=== PATIENT | male | born 1960 | race Two or more races ===

== ENCOUNTER 2016-10-25 16:02 | Inpatient (IN) | payer OTHER ==
[~2016-10-25] VITALS: Ht 162.6 cm; Wt 87.8 kg
[~2016-10-25 16:02] MED LIST: HTN med; LISI1TAB7 PO
[2016-10-25] MEDS ORDERED: PANTOPRAZOLE 80 MG in SODIUM CHLORIDE 0.9% 50 ML IVPB ONE (16:29)
[2016-10-25] MEDS ORDERED: SODIUM CHLORIDE 0.9% 1,000ML IVBOLUS ONE ×2 (16:30→20:00)
[2016-10-25] MEDS ORDERED: SODIUM CHLORIDE FLUSH 10ML SYR IVF ONE (16:30)
[2016-10-25] MEDS ORDERED: PIPERACILLIN/TAZO/PMX 3.375GM 50 ML IVPB ONE (16:30)
[2016-10-25] MEDS ORDERED: ACETAMINOPHEN 500 MG TABLET PO ONE (16:30)
[2016-10-25] MEDS ORDERED: PIPERACILLIN/TAZO/PMX 3.375GM 50 ML ONE (16:48)
[2016-10-25] MEDS ORDERED: ACETAMINOPHEN 500 MG TABLET ONE (16:48)
[2016-10-25 17:36] LABS: ASPARTATE AMINO TRANSFERASE 90 U/L (15-37)
[2016-10-25 17:38] LABS: BLOOD UREA NITROGEN 120 mg/dL (7-18)
[2016-10-25] MEDS: PANTOPRAZOLE 80 MG in SODIUM CHLORIDE 0.9% 100 ML IV SCH (17:43)
[2016-10-25 17:55] LABS: DIFF TOTAL CELLS COUNTED 100 CELL DIFF
[2016-10-25 17:57] LABS: ANISOCYTOSIS 1+
[2016-10-25 17:59] LABS: POLYCHROMASIA 1+
[2016-10-25 18:00] LABS: LARGE PLATELETS 1+
[2016-10-25 18:05] LABS: TOTAL IRON BINDING CAPACITY 140 mcg/dL (250-450)
[2016-10-25 18:10] LABS: VERIFY COUNTS? YES
[2016-10-25] MEDS ORDERED: SODIUM CHLORIDE 0.9% 1,000 ML IV SCH (18:27)
[2016-10-25] MEDS ORDERED: DOCUSATE 100 MG CAPSULE PO PRN (18:30)
[2016-10-25] MEDS ORDERED: PIPERACILLIN/TAZO/PMX 3.375GM 50 ML IV SCH (18:30)
[2016-10-25] MEDS ORDERED: POLYETHYLENE GLYCOL 17 GM PACKET PO PRN (18:30)
[2016-10-25] MEDS ORDERED: morphine SULFATE 10 MG/ML, 1ML IVPush PRN (18:30)
[2016-10-25] MEDS ORDERED: HEPARIN 5,000 UNITS/ML, 1ML SQ SCH (18:30)
[2016-10-25] MEDS ORDERED: ONDANSETRON 2MG/ML, 2ML IVPush PRN (18:30)
[2016-10-25] MEDS ORDERED: LACTATED RINGERS 1,000 ML IV SCH (18:30)
[2016-10-25] MEDS ORDERED: SODIUM CHLORIDE 0.9%, 500ML IVBOLUS ONE (18:30)
[2016-10-25] MEDS ORDERED: LACTATED RINGERS 1,000 ML IV ONE (18:31)
[2016-10-25 18:54] LABS: HEPATITIS C VIRUS ANTIBODY Nonreactive (Nonreactive)
[2016-10-25 21:15] LABS: POTASSIUM,URINE RANDOM 34 mmol/L
[2016-10-25] MEDS: THIAMINE 100 MG in SODIUM CHLORIDE 0.9% 50 ML IV SCH (21:35)
[2016-10-25] MEDS: NOREPINEPHRINE 4 MG in SODIUM CHLORIDE 0.9% 246 ML IV PRN (21:37)
[2016-10-25] MEDS: PIPERACILLIN/TAZO(ZOSYN) 2.25 GM in NS 50 ML IVPB SCH (22:38)
[2016-10-26] MEDS: PANTOPRAZOLE 80 MG in SODIUM CHLORIDE 0.9% 100 ML IV SCH ×2 (00:52→12:38)
[2016-10-26] MEDS: NOREPINEPHRINE 4 MG in SODIUM CHLORIDE 0.9% 246 ML IV PRN ×2 (02:31→05:32)
[2016-10-26] MEDS: PHENYLEPHRINE 20 MG in SODIUM CHLORIDE 0.9% 248 ML IV PRN ×2 (02:43→08:27)
[2016-10-26 04:00] VITALS: BP 114/58
[2016-10-26 04:53] LABS: ASPARTATE AMINO TRANSFERASE 69 U/L (15-37)
[2016-10-26 05:00] LABS: BLOOD UREA NITROGEN 106 mg/dL (7-18)
[2016-10-26] MEDS: PIPERACILLIN/TAZO(ZOSYN) 2.25 GM in NS 50 ML IVPB SCH ×4 (05:01→22:12)
[2016-10-26] MEDS: SODIUM CHLORIDE 0.9% 1,000 ML IV SCH ×3 (05:02→20:59)
[2016-10-26 05:41] LABS: DIFF TOTAL CELLS COUNTED 100 CELL DIFF
[2016-10-26 05:44] LABS: ANISOCYTOSIS 1+; VERIFY COUNTS? YES
[2016-10-26 05:46] LABS: LARGE PLATELETS 1+
[2016-10-26] MEDS ORDERED: NOREPINEPHRINE 8 MG in SODIUM CHLORIDE 0.9% 242 ML IV PRN (06:29)
[2016-10-26] MEDS ORDERED: VASOPRESSIN 100 UNIT in SODIUM CHLORIDE 0.9% 495 ML IV PRN (08:30)
[2016-10-26] MEDS ORDERED: LORazepam 2 MG/ML, 1ML IVPush PRN (10:00)
[2016-10-26] MEDS ORDERED: PHYTONADIONE 10 MG/ML, 1ML SQ ONE (10:00)
[2016-10-26] MEDS: NOREPINEPHRINE 16 MG in SODIUM CHLORIDE 0.9% 234 ML IV PRN ×2 (11:14→20:23)
[2016-10-26] MEDS: ZINC SULFATE 220 MG CAPSULE PO SCH (11:14)
[2016-10-26] MEDS: LACTULOSE 20 GM/30 ML UDC PO SCH ×2 (11:15→21:00)
[2016-10-26] MEDS: CHLORDIAZEPOXIDE 10 MG CAPSULE PO SCH ×3 (11:16→21:00)
[2016-10-26] MEDS: THIAMINE 100 MG in SODIUM CHLORIDE 0.9% 50 ML IV SCH (21:00)
[2016-10-27] MEDS: SODIUM CHLORIDE 0.9% 1,000 ML IV SCH ×2 (03:57→12:59)
[2016-10-27] MEDS: PIPERACILLIN/TAZO(ZOSYN) 2.25 GM in NS 50 ML IVPB SCH ×4 (03:57→22:38)
[2016-10-27 04:00] VITALS: BP 110/59
[2016-10-27 04:16] LABS: ASPARTATE AMINO TRANSFERASE 51 U/L (15-37)
[2016-10-27 04:18] LABS: BLOOD UREA NITROGEN 102 mg/dL (7-18)
[2016-10-27] MEDS: CHLORDIAZEPOXIDE 10 MG CAPSULE PO SCH ×3 (08:31→20:51)
[2016-10-27] MEDS: ZINC SULFATE 220 MG CAPSULE PO SCH (08:31)
[2016-10-27] MEDS: LACTULOSE 20 GM/30 ML UDC PO SCH ×2 (08:31→20:51)
[2016-10-27] MEDS ORDERED: PANTOPRAZOLE 80 MG in SODIUM CHLORIDE 0.9% 100 ML IV SCH (10:00)
[2016-10-27] MEDS: THIAMINE 100 MG in SODIUM CHLORIDE 0.9% 50 ML IV SCH (20:51)
[2016-10-27] MEDS: PANTOPRAZOLE 40 MG IV IVPush SCH (20:51)
[2016-10-28] MEDS: SODIUM CHLORIDE 0.9% 1,000 ML IV SCH ×2 (03:34→22:17)
[2016-10-28] MEDS: NOREPINEPHRINE 16 MG in SODIUM CHLORIDE 0.9% 234 ML IV PRN (03:34)
[2016-10-28 04:00] VITALS: BP 106/57
[2016-10-28] MEDS: PIPERACILLIN/TAZO(ZOSYN) 2.25 GM in NS 50 ML IVPB SCH ×4 (04:02→22:17)
[2016-10-28 04:37] LABS: ASPARTATE AMINO TRANSFERASE 67 U/L (15-37); BLOOD UREA NITROGEN 91 mg/dL (7-18)
[2016-10-28] MEDS: ZINC SULFATE 220 MG CAPSULE PO SCH (10:25)
[2016-10-28] MEDS: PANTOPRAZOLE 40 MG IV IVPush SCH ×2 (10:25→21:10)
[2016-10-28] MEDS: CHLORDIAZEPOXIDE 10 MG CAPSULE PO SCH ×3 (10:25→21:10)
[2016-10-28] MEDS: LACTULOSE 20 GM/30 ML UDC PO SCH ×2 (10:25→21:10)
[2016-10-28] MEDS: SODIUM BICARBONATE 650 MG TABLET PO SCH ×2 (14:07→21:10)
[2016-10-28] MEDS: THIAMINE 100 MG in SODIUM CHLORIDE 0.9% 50 ML IV SCH (21:10)
[2016-10-29 01:22] VITALS: BP 109/66
[2016-10-29] MEDS: PIPERACILLIN/TAZO(ZOSYN) 2.25 GM in NS 50 ML IVPB SCH ×4 (04:25→22:16)
[2016-10-29 05:53] LABS: BLOOD UREA NITROGEN 72 mg/dL (7-18)
[2016-10-29 06:00] LABS: ASPARTATE AMINO TRANSFERASE 92 U/L (15-37)
[2016-10-29 07:45] VITALS: BP 103/67
[2016-10-29] MEDS: PANTOPRAZOLE 40 MG IV IVPush SCH (10:10)
[2016-10-29] MEDS: LACTULOSE 20 GM/30 ML UDC PO SCH ×2 (10:10→20:44)
[2016-10-29] MEDS: ZINC SULFATE 220 MG CAPSULE PO SCH (10:10)
[2016-10-29] MEDS: CHLORDIAZEPOXIDE 10 MG CAPSULE PO SCH ×3 (10:10→20:44)
[2016-10-29] MEDS: SODIUM BICARBONATE 650 MG TABLET PO SCH ×2 (10:10→20:44)
[2016-10-29 12:55] VITALS: BP 100/65
[2016-10-29] MEDS: OXYcodone IR 5MG TABLET PO PRN (19:18)
[2016-10-29 20:31] VITALS: BP 103/66
[2016-10-29] MEDS: THIAMINE 100 MG in SODIUM CHLORIDE 0.9% 50 ML IV SCH (20:44)
[2016-10-29] MEDS: RIFAXIMIN 550 MG TABLET PO SCH (20:44)
[2016-10-30 01:18] VITALS: BP 97/58
[2016-10-30] MEDS: PIPERACILLIN/TAZO(ZOSYN) 2.25 GM in NS 50 ML IVPB SCH ×3 (04:06→16:18)
[2016-10-30 04:52] LABS: BLOOD UREA NITROGEN 72 mg/dL (7-18)
[2016-10-30 04:55] LABS: ASPARTATE AMINO TRANSFERASE 81 U/L (15-37)
[2016-10-30 08:06] VITALS: BP 101/68
[2016-10-30] MEDS: CHLORDIAZEPOXIDE 10 MG CAPSULE PO SCH ×3 (09:00→20:55)
[2016-10-30] MEDS: RIFAXIMIN 550 MG TABLET PO SCH ×2 (09:00→20:56)
[2016-10-30] MEDS: SODIUM BICARBONATE 650 MG TABLET PO SCH ×2 (09:00→20:55)
[2016-10-30] MEDS: LACTULOSE 20 GM/30 ML UDC PO SCH ×3 (09:00→20:56)
[2016-10-30] MEDS: ZINC SULFATE 220 MG CAPSULE PO SCH (09:00)
[2016-10-30] MEDS ORDERED: LIDOCAINE 1%, 20ML ONE (12:40)
[2016-10-30 13:43] VITALS: BP 102/66
[2016-10-30 13:54] LABS: CYTOLOGY BODY FLUID RECD INTO PATHOLOGY; CYTOLOGY BODY FLUID SOURCE ASCITES FLUID
[2016-10-30 19:29] VITALS: BP 112/74
[2016-10-30] MEDS: THIAMINE 100 MG in SODIUM CHLORIDE 0.9% 50 ML IV SCH (21:11)
[2016-10-30] MEDS: PIPERACILLIN/TAZO/PMX 2.25GM 50 ML IVPB SCH (22:37)
[2016-10-31 01:14] VITALS: BP 96/59
[2016-10-31] MEDS: PIPERACILLIN/TAZO/PMX 2.25GM 50 ML IVPB SCH ×4 (04:42→23:37)
[2016-10-31 05:02] LABS: BLOOD UREA NITROGEN 57 mg/dL (7-18)
[2016-10-31 05:05] LABS: ASPARTATE AMINO TRANSFERASE 71 U/L (15-37)
[2016-10-31 06:15] LABS: DIFF TOTAL CELLS COUNTED 100 CELL DIFF
[2016-10-31 06:18] LABS: VERIFY COUNTS? YES
[2016-10-31 06:19] LABS: ANISOCYTOSIS 1+; POLYCHROMASIA 1+
[2016-10-31 06:38] VITALS: BP 103/66
[2016-10-31] MEDS: LACTULOSE 20 GM/30 ML UDC PO SCH ×3 (08:59→22:41)
[2016-10-31] MEDS: ZINC SULFATE 220 MG CAPSULE PO SCH (08:59)
[2016-10-31] MEDS: SODIUM BICARBONATE 650 MG TABLET PO SCH ×2 (09:00→22:41)
[2016-10-31] MEDS: RIFAXIMIN 550 MG TABLET PO SCH ×2 (09:00→22:41)
[2016-10-31] MEDS: CHLORDIAZEPOXIDE 10 MG CAPSULE PO SCH ×2 (09:06→16:28)
[2016-10-31 12:46] VITALS: BP 97/61
[2016-10-31 16:31] VITALS: BP 104/66
[2016-10-31 20:03] VITALS: BP 106/66
[2016-10-31] MEDS: THIAMINE 100 MG in SODIUM CHLORIDE 0.9% 50 ML IV SCH (22:41)
[2016-11-01 01:57] VITALS: BP 105/68
[2016-11-01 05:07] LABS: ASPARTATE AMINO TRANSFERASE 87 U/L (15-37); BLOOD UREA NITROGEN 54 mg/dL (7-18)
[2016-11-01] MEDS: PIPERACILLIN/TAZO/PMX 2.25GM 50 ML IVPB SCH ×4 (05:20→22:39)
[2016-11-01 07:22] VITALS: BP 113/72
[2016-11-01] MEDS: LACTULOSE 20 GM/30 ML UDC PO SCH ×3 (09:35→20:16)
[2016-11-01] MEDS: SODIUM BICARBONATE 650 MG TABLET PO SCH ×2 (09:35→20:17)
[2016-11-01] MEDS: ZINC SULFATE 220 MG CAPSULE PO SCH (09:35)
[2016-11-01] MEDS: RIFAXIMIN 550 MG TABLET PO SCH ×2 (09:35→20:17)
[2016-11-01] MEDS ORDERED: PIPERACILLIN/TAZO/PMX 3.375GM 50 ML IV SCH (11:00)
[2016-11-01 13:11] VITALS: BP 103/66
[2016-11-01 18:54] VITALS: BP 119/78
[2016-11-01] MEDS: THIAMINE 100 MG in SODIUM CHLORIDE 0.9% 50 ML IV SCH (20:17)
[2016-11-02 03:37] VITALS: BP 122/77
[2016-11-02 04:35] LABS: ASPARTATE AMINO TRANSFERASE 104 U/L (15-37); BLOOD UREA NITROGEN 46 mg/dL (7-18)
[2016-11-02] MEDS: PIPERACILLIN/TAZO/PMX 2.25GM 50 ML IVPB SCH ×2 (04:44→10:09)
[2016-11-02 07:00] VITALS: BP 119/78
[2016-11-02] MEDS: SODIUM BICARBONATE 650 MG TABLET PO SCH ×2 (10:08→20:51)
[2016-11-02] MEDS: RIFAXIMIN 550 MG TABLET PO SCH ×2 (10:08→20:51)
[2016-11-02] MEDS: ZINC SULFATE 220 MG CAPSULE PO SCH (10:08)
[2016-11-02] MEDS: LACTULOSE 20 GM/30 ML UDC PO SCH ×3 (10:08→20:51)
[2016-11-02 12:45] VITALS: BP 112/70
[2016-11-02] MEDS: PIPERACILLIN/TAZO/PMX 3.375GM 50 ML IV SCH ×2 (15:43→22:37)
[2016-11-02 18:36] VITALS: BP 120/77
[2016-11-02] MEDS: OXYcodone IR 5MG TABLET PO PRN (18:51)
[2016-11-02] MEDS: THIAMINE 100 MG in SODIUM CHLORIDE 0.9% 50 ML IV SCH (20:51)
[2016-11-03 02:22] VITALS: BP 102/64
[2016-11-03] MEDS: PIPERACILLIN/TAZO/PMX 3.375GM 50 ML IV SCH ×4 (04:26→23:59)
[2016-11-03 05:22] LABS: ASPARTATE AMINO TRANSFERASE 86 U/L (15-37); BLOOD UREA NITROGEN 43 mg/dL (7-18)
[2016-11-03 06:58] VITALS: BP 109/68
[2016-11-03] MEDS: RIFAXIMIN 550 MG TABLET PO SCH ×2 (09:06→21:06)
[2016-11-03] MEDS: SODIUM BICARBONATE 650 MG TABLET PO SCH ×2 (09:06→21:05)
[2016-11-03] MEDS: ZINC SULFATE 220 MG CAPSULE PO SCH (09:06)
[2016-11-03] MEDS: LACTULOSE 20 GM/30 ML UDC PO SCH ×3 (09:06→21:05)
[2016-11-03] MEDS: PANTOPRAZOLE 20MG TABLET PO SCH ×2 (09:08→17:42)
[2016-11-03 12:59] VITALS: BP 112/73
[2016-11-03 14:02] VITALS: BP 107/61
[2016-11-03] MEDS: OXYcodone 5 MG/5 ML ORAL.SOL UDC PO PRN (19:13)
[2016-11-03 20:00] VITALS: BP 117/77
[2016-11-03] MEDS: THIAMINE 100 MG in SODIUM CHLORIDE 0.9% 50 ML IV SCH (21:05)
[2016-11-04 02:00] VITALS: BP 122/73
[2016-11-04] MEDS: PIPERACILLIN/TAZO/PMX 3.375GM 50 ML IV SCH ×3 (05:25→18:17)
[2016-11-04 07:45] VITALS: BP 126/76
[2016-11-04] MEDS: PANTOPRAZOLE 20MG TABLET PO SCH ×2 (07:50→18:17)
[2016-11-04] MEDS: LACTULOSE 20 GM/30 ML UDC PO SCH ×3 (10:24→22:07)
[2016-11-04] MEDS: RIFAXIMIN 550 MG TABLET PO SCH ×2 (10:25→22:07)
[2016-11-04] MEDS: ZINC SULFATE 220 MG CAPSULE PO SCH (10:25)
[2016-11-04] MEDS: SODIUM BICARBONATE 650 MG TABLET PO SCH ×2 (10:25→22:07)
[2016-11-04] MEDS: OXYcodone 5 MG/5 ML ORAL.SOL UDC PO PRN ×2 (11:38→19:45)
[2016-11-04 12:20] VITALS: BP 113/69
[2016-11-04 19:45] VITALS: BP 130/77
[2016-11-04] MEDS: THIAMINE 100 MG in SODIUM CHLORIDE 0.9% 50 ML IV SCH (22:07)
[2016-11-05] MEDS: PIPERACILLIN/TAZO/PMX 3.375GM 50 ML IV SCH ×3 (00:33→12:33)
[2016-11-05 01:50] VITALS: BP 119/71
[2016-11-05 05:43] LABS: ASPARTATE AMINO TRANSFERASE 78 U/L (15-37); BLOOD UREA NITROGEN 36 mg/dL (7-18)
[2016-11-05 07:36] VITALS: BP 125/73
[2016-11-05] MEDS: PANTOPRAZOLE 20MG TABLET PO SCH ×2 (08:49→16:38)
[2016-11-05] MEDS: RIFAXIMIN 550 MG TABLET PO SCH ×2 (08:49→21:15)
[2016-11-05] MEDS: LACTULOSE 20 GM/30 ML UDC PO SCH ×3 (08:49→21:15)
[2016-11-05] MEDS: SODIUM BICARBONATE 650 MG TABLET PO SCH ×2 (08:49→21:15)
[2016-11-05] MEDS: ZINC SULFATE 220 MG CAPSULE PO SCH (08:49)
[2016-11-05] MEDS: OXYcodone 5 MG/5 ML ORAL.SOL UDC PO PRN (11:39)
[2016-11-05 12:46] VITALS: BP 116/73
[2016-11-05] MEDS ORDERED: MAGNESIUM SULFATE PMX 2GM/50ML 50 ML IV ONE (18:00)
[2016-11-05 20:00] VITALS: BP 121/77
[2016-11-05] MEDS: THIAMINE 100 MG in SODIUM CHLORIDE 0.9% 50 ML IV SCH (21:15)
[2016-11-05] MEDS: LACTOBACILLUS CHEW TABLET PO SCH (21:15)
[2016-11-05] MEDS: AMOXICILLIN/CLAV 875-125MG TABLET PO SCH (21:15)
[2016-11-06 03:13] VITALS: BP 111/70
[2016-11-06 05:29] LABS: ASPARTATE AMINO TRANSFERASE 72 U/L (15-37); BLOOD UREA NITROGEN 33 mg/dL (7-18)
[2016-11-06 07:34] VITALS: BP 118/76
[2016-11-06] MEDS: LACTULOSE 20 GM/30 ML UDC PO SCH ×3 (07:56→19:55)
[2016-11-06] MEDS: ZINC SULFATE 220 MG CAPSULE PO SCH (07:56)
[2016-11-06] MEDS: LACTOBACILLUS CHEW TABLET PO SCH ×3 (07:56→19:55)
[2016-11-06] MEDS: PANTOPRAZOLE 20MG TABLET PO SCH (07:56)
[2016-11-06] MEDS: MAGNESIUM OXIDE 400 MG TABLET PO SCH (07:56)
[2016-11-06] MEDS: RIFAXIMIN 550 MG TABLET PO SCH ×2 (07:56→19:55)
[2016-11-06] MEDS: SODIUM BICARBONATE 650 MG TABLET PO SCH ×2 (07:56→19:55)
[2016-11-06] MEDS: AMOXICILLIN/CLAV 875-125MG TABLET PO SCH ×2 (07:56→19:55)
[2016-11-06] MEDS ORDERED: SODI650T PO (08:40)
[2016-11-06] MEDS ORDERED: ZINC220C5 PO (08:40)
[2016-11-06] MEDS ORDERED: LACT20SO13 PO (08:40)
[2016-11-06] MEDS ORDERED: THIA100T6 PO (08:40)
[2016-11-06] MEDS ORDERED: MAGN400T26 PO (08:40)
[2016-11-06] MEDS ORDERED: FURO20TA3 PO (08:40)
[2016-11-06] MEDS ORDERED: FOLI-17 PO (08:40)
[2016-11-06] MEDS ORDERED: SPIR25TA PO (08:40)
[2016-11-06] MEDS ORDERED: AMOX1TAB12 PO (08:40)
[2016-11-06] MEDS ORDERED: RIFA550T PO (08:40)
[2016-11-06] MEDS ORDERED: MULT1TAB60 PO (08:40)
[2016-11-06] MEDS ORDERED: ACID1TAB7 PO (08:40)
[2016-11-06] MEDS ORDERED: LIDOCAINE 1%, 20ML ONE (09:09)
[2016-11-06] MEDS: FUROSEMIDE 20 MG TABLET PO SCH (10:13)
[2016-11-06] MEDS: SPIRONOLACTONE 25 MG TABLET PO SCH (10:13)
[2016-11-06] MEDS: THIAMINE 100MG TABLET PO SCH (10:13)
[2016-11-06] MEDS: MULTIVITAMIN 1 TABLET PO SCH (10:13)
[2016-11-06] MEDS: FOLIC ACID 1 MG TABLET PO SCH (10:13)
[2016-11-06 13:35] VITALS: BP 113/71
[2016-11-06 19:17] VITALS: BP 115/70
[2016-11-07 01:33] VITALS: BP 112/68
[2016-11-07 06:52] VITALS: BP 113/68
[2016-11-07 09:40] LABS: BLOOD UREA NITROGEN 31 mg/dL (7-18)
[2016-11-07] MEDS: THIAMINE 100MG TABLET PO SCH (11:05)
[2016-11-07] MEDS: FOLIC ACID 1 MG TABLET PO SCH (11:06)
[2016-11-07] MEDS: AMOXICILLIN/CLAV 875-125MG TABLET PO SCH (11:06)
[2016-11-07] MEDS: LACTOBACILLUS CHEW TABLET PO SCH ×2 (11:06→16:42)
[2016-11-07] MEDS: FUROSEMIDE 20 MG TABLET PO SCH (11:06)
[2016-11-07] MEDS: MAGNESIUM OXIDE 400 MG TABLET PO SCH (11:06)
[2016-11-07] MEDS: MULTIVITAMIN 1 TABLET PO SCH (11:06)
[2016-11-07] MEDS: ZINC SULFATE 220 MG CAPSULE PO SCH (11:06)
[2016-11-07] MEDS: RIFAXIMIN 550 MG TABLET PO SCH (11:06)
[2016-11-07] MEDS: SPIRONOLACTONE 25 MG TABLET PO SCH (11:06)
[2016-11-07] MEDS: SODIUM BICARBONATE 650 MG TABLET PO SCH (11:06)
[2016-11-07] MEDS: LACTULOSE 20 GM/30 ML UDC PO SCH ×2 (11:07→16:42)
[2016-11-07 13:03] VITALS: BP 114/71
[2016-11-07] MEDS ORDERED: SPIR25TA PO (14:08)
[2016-11-07] MEDS ORDERED: SPIRONOLACTONE 25 MG TABLET PO SCH (21:00)
== END 2016-11-07 17:00 | DRG 871 ==
LOC: SUATTDRO 18:10 → ED 18:33 → EDIP 18:55 → CCU 19:17 → 3NW 10-28 18:04 → 3NE 11-03 14:00
PROVIDERS: ADMIT Family Medicine; ATTEND Family Medicine
PROC: 0W9G3ZZ Drainage of Peritoneal Cavity, Percutaneous Approach (ICD-10-PCS; principal; 2016-10-30)
PROC: 0W9G3ZZ Drainage of Peritoneal Cavity, Percutaneous Approach (ICD-10-PCS; 2016-11-06)
DX: A41.51 Sepsis due to Escherichia coli [E. coli] (principal); R65.21 Severe sepsis with septic shock; G93.41 Metabolic encephalopathy; E43 Unspecified severe protein-calorie malnutrition; N17.0 Acute kidney failure with tubular necrosis; E87.1 Hypo-osmolality and hyponatremia; K92.2 Gastrointestinal hemorrhage, unspecified; D68.9 Coagulation defect, unspecified; K76.6 Portal hypertension; N30.90 Cystitis, unspecified without hematuria; K72.10 Chronic hepatic failure without coma; M54.30 Sciatica, unspecified side; D53.9 Nutritional anemia, unspecified; D69.59 Other secondary thrombocytopenia; E83.39 Other disorders of phosphorus metabolism; E86.0 Dehydration; I10 Essential (primary) hypertension; K42.9 Umbilical hernia without obstruction or gangrene; K70.11 Alcoholic hepatitis with ascites; K70.31 Alcoholic cirrhosis of liver with ascites; E83.42 Hypomagnesemia; D63.8 Anemia in other chronic diseases classified elsewhere; F10.20 Alcohol dependence, uncomplicated; N18.9 Chronic kidney disease, unspecified; I12.9 Hypertensive chronic kidney disease with stage 1 through stage 4 chronic kidney disease, or unspecified chronic kidney disease; Z79.899 Other long term (current) drug therapy
CPT/HCPCS: 36415; 49083; 71010; 76700; 80048; 80053; 80074; 80307; 81001; 82010; 82042; 82105; 82140; 82436; 82570; 82607; 82728; 83540; 83550; 83605; 83735; 84100; 84133; 84145; 84157; 84300; 84443; 84630; 85025; 85610; 86850; 86900; 87040; 87070; 87077; 87081; 87086; 87186; 87205; 88112; 93005; 93306; 96365; 96367; J2405; J2543; J3411; J3430; J3490; C9113; J2270; J2370; J3475; J7030; J7040; J7050

== ENCOUNTER 2016-12-16 06:49 | Observation (INO) | payer OTHER, MEDICAID ==
[~2016-12-16] VITALS: Ht 162.6 cm; Wt 85.3 kg
[~2016-12-16 06:49] MED LIST changes: +ACID1TAB7 PO; +AMOX1TAB12 PO; +FOLI-17 PO; +FURO20TA3 PO; +LACT20SO13 PO; +MAGN400T26 PO; +MULT1TAB60 PO; +RIFA550T4 PO; +SODI650T PO; +SPIR25TA PO; +THIA100T6 PO; +ZINC220C5 PO
[2016-12-16] MEDS ORDERED: LACTATED RINGERS 1,000 ML IV SCH ×2 (07:21→07:30)
[2016-12-16] MEDS ORDERED: LIDOCAINE 1%, 2ML SQ PRN (07:30)
[2016-12-16] MEDS ORDERED: IBUP-1222 PO (07:37)
[2016-12-16 07:39] VITALS: BP 143/89
[2016-12-16] MEDS ORDERED: EPINEPHRINE 1 MG/ML, 1ML ONE (07:55)
[2016-12-16] MEDS ORDERED: BUPIVACAINE/PF 0.5% ONE (07:55)
[2016-12-16] MEDS ORDERED: MIDAZOLAM 1 MG/ML, 2ML ONE (08:02)
[2016-12-16] MEDS ORDERED: FENTANYL PF 100 MCG/2ML ONE ×2 (08:02→09:36)
[2016-12-16] MEDS ORDERED: FOLI-17 PO (08:03)
[2016-12-16] MEDS ORDERED: LACT10SO28 PO (08:03)
[2016-12-16] MEDS ORDERED: SODI650T PO (08:03)
[2016-12-16] MEDS ORDERED: THIA100T10 PO (08:03)
[2016-12-16] MEDS ORDERED: MAGN400T7 PO (08:03)
[2016-12-16] MEDS ORDERED: FURO20TA3 PO (08:03)
[2016-12-16] MEDS ORDERED: SPIR25TA3 PO (08:03)
[2016-12-16] MEDS ORDERED: AMOX875T PO (08:03)
[2016-12-16] MEDS ORDERED: RIFA550T4 PO (08:03)
[2016-12-16] MEDS ORDERED: MULT-6 PO (08:03)
[2016-12-16] MEDS ORDERED: ZINC220T PO (08:03)
[2016-12-16] MEDS ORDERED: CALC-79 PO (08:03)
[2016-12-16 08:27] LABS: BLOOD UREA NITROGEN 14 mg/dL (7-18)
[2016-12-16] MEDS ORDERED: LABETALOL 5MG/ML, 20ML IV PRN (08:30)
[2016-12-16] MEDS ORDERED: ALBUTEROL SULFATE 2.5 MG/3 ML NPPB PRN (08:30)
[2016-12-16] MEDS ORDERED: hydrALAzine 20 MG/ML, 1ML IV PRN (08:30)
[2016-12-16] MEDS ORDERED: PROMETHAZINE 25 MG/ML, 1ML IV PRN (08:30)
[2016-12-16] MEDS ORDERED: METOCLOPRAMIDE 5 MG/ML, 2ML IV PRN (08:30)
[2016-12-16] MEDS ORDERED: METOPROLOL 1 MG/ML, 5ML IV PRN (08:30)
[2016-12-16] MEDS ORDERED: MIDAZOLAM 1 MG/ML, 2ML IV PRN (08:30)
[2016-12-16] MEDS ORDERED: EPHEDRINE 50 MG/ML, 1ML IVPush PRN (08:30)
[2016-12-16] MEDS ORDERED: ONDANSETRON 2MG/ML, 2ML IVPush PRN ×2 (08:30→13:30)
[2016-12-16] MEDS ORDERED: OXYcodone 5 MG/5 ML ORAL.SOL UDC PO PRN (08:30)
[2016-12-16] MEDS ORDERED: NALOXONE 0.4 MG/ML, 1ML ONE (08:42)
[2016-12-16] MEDS ORDERED: ROCURONIUM 10 MG/ML ONE (08:42)
[2016-12-16] MEDS ORDERED: SUCCINYLCHOLINE 20 MG/ML, 10ML ONE (08:42)
[2016-12-16] MEDS ORDERED: ONDANSETRON 2MG/ML, 2ML ONE (08:42)
[2016-12-16] MEDS ORDERED: DEXAMETHASONE 4 MG/ML, 1ML ONE (08:42)
[2016-12-16] MEDS ORDERED: CEFAZOLIN 1,000 MG ONE (08:42)
[2016-12-16] MEDS ORDERED: PROPOFOL 10 MG/ML, 20ML ONE (08:42)
[2016-12-16 09:25] LABS: HEMOGLOBIN 11.4 g/dL (13.7-18.0); WHITE BLOOD COUNT 4.9 x10^3/uL (3.4-10)
[2016-12-16] MEDS ORDERED: OXYcodone 5 MG/5 ML ORAL.SOL UDC ONE (09:37)
[2016-12-16] MEDS ORDERED: ALBUTEROL SULFATE 2.5 MG/3 ML ONE (10:18)
[2016-12-16] MEDS: FENTANYL PF 100 MCG/2ML IV PRN ×2 (10:44→11:01)
[2016-12-16] MEDS ORDERED: HYDROmorphone 1 MG/ML, 1ML ONE (10:45)
[2016-12-16] MEDS: HYDROmorphone 1 MG/ML, 1ML IV PRN ×2 (10:47→11:01)
[2016-12-16 12:20] VITALS: BP 116/79
[2016-12-16] MEDS ORDERED: DIPHENHYDRAMINE 50 MG/ML, 1ML IVPush PRN (13:30)
[2016-12-16] MEDS ORDERED: MORPHINE SULFATE 4 MG/ML, 1ML IVPush PRN (13:30)
[2016-12-16] MEDS ORDERED: NS + 40MEQ KCL 1,000 ML IV SCH (13:30)
[2016-12-16] MEDS ORDERED: OXYcodone/APAP 5/325MG TABLET PO PRN (13:30)
[2016-12-16] MEDS: CALCIUM CARBONATE 500 MG TAB.CHEW PO SCH ×2 (15:41→20:41)
[2016-12-16] MEDS: LACTULOSE 20 GM/30 ML UDC PO SCH ×2 (15:41→21:16)
[2016-12-16 17:05] VITALS: BP 101/64
[2016-12-16 20:19] VITALS: BP 119/75
[2016-12-16] MEDS: SODIUM BICARBONATE 650 MG TABLET PO SCH (20:42)
[2016-12-16] MEDS: SPIRONOLACTONE 25 MG TABLET PO SCH (20:42)
[2016-12-16] MEDS: RIFAXIMIN 550 MG TABLET PO SCH (20:42)
[2016-12-16 23:51] VITALS: BP 122/80
[2016-12-17 06:55] VITALS: BP 118/73
[2016-12-17] MEDS: CALCIUM CARBONATE 500 MG TAB.CHEW PO SCH (07:30)
[2016-12-17] MEDS: SPIRONOLACTONE 25 MG TABLET PO SCH (07:30)
[2016-12-17] MEDS: SODIUM BICARBONATE 650 MG TABLET PO SCH (07:30)
[2016-12-17] MEDS: RIFAXIMIN 550 MG TABLET PO SCH (07:30)
[2016-12-17] MEDS: LACTULOSE 20 GM/30 ML UDC PO SCH (07:30)
[2016-12-17] MEDS ORDERED: ENOXAPARIN 40 MG/0.4 ML SQ SCH (09:00)
[2016-12-17] MEDS ORDERED: MULTIVITAMIN 1 TABLET PO SCH (09:00)
[2016-12-17] MEDS ORDERED: FOLIC ACID 1 MG TABLET PO SCH (09:00)
[2016-12-17] MEDS ORDERED: ZINC SULFATE 220 MG CAPSULE PO SCH (09:00)
[2016-12-17] MEDS ORDERED: MAGNESIUM OXIDE 400 MG TABLET PO SCH (09:00)
[2016-12-17] MEDS ORDERED: FUROSEMIDE 20 MG TABLET PO SCH (09:00)
[2016-12-17] MEDS ORDERED: THIAMINE 100MG TABLET PO SCH (09:00)
[2016-12-17] MEDS ORDERED: OXYC5CAP2 PO (09:04)
== END 2016-12-17 11:00 | disposition home or self-care (01) ==
LOC: OUT 06:49 → 4NOR 12:03 → OUT 12:09 → 4NOR 12:10 → DCLOUNGE 12-17 10:35
PROVIDERS: ADMIT Colon & Rectal Surgery; ATTEND Colon & Rectal Surgery
DX: K43.9 Ventral hernia without obstruction or gangrene (principal); K74.60 Unspecified cirrhosis of liver; K42.9 Umbilical hernia without obstruction or gangrene
CPT/HCPCS: 36415; 49560; 49568; 80048; 85025; 85610; 85730; 88302; 96372; C1781; G0378; J0171; J0330; J0690; J1100; J1170; J1650; J2250; J2310; J2405; J2704; J3010; J3480; J3490

== ENCOUNTER 2016-12-19 20:49 | Inpatient (IN) | payer OTHER, MEDICAID ==
[~2016-12-19] VITALS: Ht 162.6 cm; Wt 80.0 kg
[~2016-12-19 20:49] MED LIST changes: +AMOX875T PO; +CALC-79 PO; +IBUP-1222 PO; +LACT10SO28 PO; +MAGN400T7 PO; +MULT-6 PO; +OXYC5CAP2 PO; +SPIR25TA3 PO; +THIA100T10 PO; +ZINC220T PO
[2016-12-19] MEDS ORDERED: SODIUM CHLORIDE FLUSH 10ML SYR IVF ONE (21:30)
[2016-12-19] MEDS ORDERED: OMNIPAQUE 350 MG/ML, 100ML BOTTLE ONE (21:40)
[2016-12-19 21:49] LABS: ASPARTATE AMINO TRANSFERASE 61 U/L (15-37); BLOOD UREA NITROGEN 21 mg/dL (7-18)
[2016-12-19 21:50] LABS: HEMATOCRIT 30.5 % (39.2-51.8); HEMOGLOBIN 10.2 g/dL (13.7-18.0); WHITE BLOOD COUNT 7.4 x10^3/uL (3.4-10)
[2016-12-19 22:14] LABS: ANISOCYTOSIS 1+
[2016-12-19 22:15] LABS: OVALOCYTES 1+; POLYCHROMASIA 1+
[2016-12-19 22:16] LABS: LARGE PLATELETS 1+
[2016-12-20 01:00] VITALS: BP 148/82
[2016-12-20] MEDS ORDERED: D5%-0.45% NACL 1,000 ML IV ONE (01:02)
[2016-12-20] MEDS ORDERED: HYDROmorphone 1 MG/ML, 1ML IVPush PRN (01:30)
[2016-12-20] MEDS ORDERED: ONDANSETRON 2MG/ML, 2ML IVPush PRN ×2 (01:30→06:00)
[2016-12-20] MEDS ORDERED: SODIUM CHLORIDE FLUSH 10ML SYR IVF PRN (01:30)
[2016-12-20 02:08] VITALS: BP 148/82
[2016-12-20 02:59] VITALS: BP 148/82
[2016-12-20] MEDS ORDERED: POLYETHYLENE GLYCOL 17 GM PACKET PO PRN (06:00)
[2016-12-20] MEDS ORDERED: ACETAMINOPHEN 325 MG TABLET PO PRN (06:00)
[2016-12-20] MEDS: CALCIUM CARBONATE 500 MG TAB.CHEW PO SCH ×4 (06:00→20:41)
[2016-12-20] MEDS ORDERED: DOCUSATE 100 MG CAPSULE PO PRN (06:00)
[2016-12-20] MEDS: LACTULOSE 10 GM/15 ML UDC PO SCH ×4 (06:00→20:41)
[2016-12-20] MEDS ORDERED: morphine SULFATE 10 MG/ML, 1ML IVPush PRN (06:00)
[2016-12-20] MEDS ORDERED: OXYcodone IR 5MG TABLET PO PRN ×2 (06:00)
[2016-12-20 06:50] VITALS: BP 118/68
[2016-12-20] MEDS: SODIUM CHLORIDE FLUSH 10ML SYR IVF SCH ×2 (09:00→20:42)
[2016-12-20] MEDS: RIFAXIMIN 550 MG TABLET PO SCH ×2 (09:57→20:41)
[2016-12-20] MEDS: THIAMINE 100MG TABLET PO SCH (09:57)
[2016-12-20] MEDS: FUROSEMIDE 20 MG TABLET PO SCH (09:57)
[2016-12-20] MEDS: MULTIVITAMIN 1 TABLET PO SCH (09:57)
[2016-12-20] MEDS: SODIUM BICARBONATE 650 MG TABLET PO SCH ×2 (09:57→20:41)
[2016-12-20] MEDS: MAGNESIUM OXIDE 400 MG TABLET PO SCH (09:57)
[2016-12-20] MEDS: FOLIC ACID 1 MG TABLET PO SCH (09:57)
[2016-12-20] MEDS: ZINC SULFATE 220 MG CAPSULE PO SCH (09:57)
[2016-12-20] MEDS: SPIRONOLACTONE 25 MG TABLET PO SCH ×2 (09:57→20:41)
[2016-12-20 13:05] VITALS: BP 127/83
[2016-12-20 20:00] VITALS: BP 120/67
[2016-12-21 00:49] VITALS: BP 111/67
[2016-12-21 05:05] LABS: BLOOD UREA NITROGEN 19 mg/dL (7-18)
[2016-12-21 05:36] LABS: HEMATOCRIT 29.1 % (39.2-51.8); HEMOGLOBIN 9.7 g/dL (13.7-18.0); WHITE BLOOD COUNT 5.7 x10^3/uL (3.4-10)
[2016-12-21 07:25] VITALS: BP 100/64
[2016-12-21] MEDS: LACTULOSE 10 GM/15 ML UDC PO SCH (09:00)
[2016-12-21] MEDS: THIAMINE 100MG TABLET PO SCH (09:19)
[2016-12-21] MEDS: ZINC SULFATE 220 MG CAPSULE PO SCH (09:19)
[2016-12-21] MEDS: FOLIC ACID 1 MG TABLET PO SCH (09:19)
[2016-12-21] MEDS: FUROSEMIDE 20 MG TABLET PO SCH (09:19)
[2016-12-21] MEDS: MULTIVITAMIN 1 TABLET PO SCH (09:19)
[2016-12-21] MEDS: SPIRONOLACTONE 25 MG TABLET PO SCH (09:19)
[2016-12-21] MEDS: MAGNESIUM OXIDE 400 MG TABLET PO SCH (09:19)
[2016-12-21] MEDS: CALCIUM CARBONATE 500 MG TAB.CHEW PO SCH (09:19)
[2016-12-21] MEDS: SODIUM BICARBONATE 650 MG TABLET PO SCH (09:19)
[2016-12-21] MEDS: RIFAXIMIN 550 MG TABLET PO SCH (09:20)
[2016-12-21] MEDS: SODIUM CHLORIDE FLUSH 10ML SYR IVF SCH (09:20)
[2016-12-21] MEDS ORDERED: PNEUMOCOCCAL 23 VACCINE IM-VACC ONE (11:00)
[2016-12-21 11:17] VITALS: BP 122/76
== END 2016-12-21 12:40 | disposition home or self-care (01) | DRG 432 ==
LOC: ED 21:18 → EDIP 12-20 01:02 → 4NOR 12-20 01:50
PROVIDERS: ADMIT Family Medicine; ATTEND Internal Medicine
PROC: 0W9G3ZZ Drainage of Peritoneal Cavity, Percutaneous Approach (ICD-10-PCS; principal; 2016-12-19)
DX: K70.31 Alcoholic cirrhosis of liver with ascites (principal); E43 Unspecified severe protein-calorie malnutrition; N17.0 Acute kidney failure with tubular necrosis; G93.41 Metabolic encephalopathy; K76.6 Portal hypertension; D69.59 Other secondary thrombocytopenia; J98.11 Atelectasis; E86.0 Dehydration; F10.21 Alcohol dependence, in remission; I12.9 Hypertensive chronic kidney disease with stage 1 through stage 4 chronic kidney disease, or unspecified chronic kidney disease; K42.9 Umbilical hernia without obstruction or gangrene; K59.00 Constipation, unspecified; M54.30 Sciatica, unspecified side; N18.9 Chronic kidney disease, unspecified; Z68.30 Body mass index [BMI] 30.0-30.9, adult; Z23 Encounter for immunization
CPT/HCPCS: 36415; 49083; 70450; 74177; 80048; 80053; 82042; 82140; 83615; 83690; 85025; 87070; 87205; 89051; 90732; 99285; Q9967

== ENCOUNTER 2017-02-22 03:51 | Inpatient (IN) | payer OTHER, MEDICAID ==
[~2017-02-22] VITALS: Ht 162.6 cm; Wt 75.0 kg
[2017-02-22] VITALS (9 sets, daily range): BP systolic 93–114; BP diastolic 51–73
[2017-02-22] MEDS ORDERED: IBUPROFEN 200 MG TABLET ONE (04:09)
[2017-02-22] MEDS ORDERED: ACETAMINOPHEN 325 MG TABLET ONE (04:09)
[2017-02-22] MEDS ORDERED: CEFTRIAXONE PMX 1GM/50ML 50 ML ONE (04:13)
[2017-02-22] MEDS ORDERED: LIDOCAINE 1%, 20ML ONE (04:13)
[2017-02-22] MEDS ORDERED: IBUPROFEN 200 MG TABLET PO ONE (04:30)
[2017-02-22] MEDS ORDERED: ACETAMINOPHEN 325 MG TABLET PO ONE (04:30)
[2017-02-22] MEDS ORDERED: LIDOCAINE 1%, 20ML INFIL ONE (04:30)
[2017-02-22] MEDS ORDERED: SODIUM CHLORIDE 0.9% 1,000ML IVBOLUS ONE (04:30)
[2017-02-22] MEDS ORDERED: CEFTRIAXONE PMX 1GM/50ML 50 ML IVPB ONE (04:30)
[2017-02-22 04:34] LABS: HEMATOCRIT 32.3 % (39.2-51.8); HEMOGLOBIN 11.1 g/dL (13.7-18.0); WHITE BLOOD COUNT 2.5 x10^3/uL (3.4-10)
[2017-02-22 04:50] LABS: ASPARTATE AMINO TRANSFERASE 49 U/L (15-37); BLOOD UREA NITROGEN 10 mg/dL (7-18)
[2017-02-22] MEDS ORDERED: CEFTRIAXONE PMX 1GM/50ML 50 ML IV ONE (05:00)
[2017-02-22] MEDS ORDERED: SODIUM CHLORIDE 0.9% 1,000 ML IV SCH (05:05)
[2017-02-22 05:46] LABS: DIFF TOTAL CELLS COUNTED 100 CELL DIFF
[2017-02-22 05:49] LABS: ANISOCYTOSIS 1+; POLYCHROMASIA 1+; VERIFY COUNTS? YES
[2017-02-22] MEDS: ACETAMINOPHEN 325 MG TABLET PO PRN (10:21)
[2017-02-22] MEDS: morphine SULFATE 10 MG/ML, 1ML IVPush PRN (11:14)
[2017-02-22] MEDS: RIFAXIMIN 550 MG TABLET PO SCH ×2 (11:19→20:50)
[2017-02-22] MEDS: THIAMINE 100MG TABLET PO SCH (15:04)
[2017-02-22] MEDS: FOLIC ACID 1 MG TABLET PO SCH (15:04)
[2017-02-22] MEDS: LACTULOSE 20 GM/30 ML UDC PO SCH ×2 (16:59→20:50)
[2017-02-22] MEDS: ONDANSETRON 2MG/ML, 2ML IVPush PRN (17:34)
[2017-02-22] MEDS: PIPERACILLIN/TAZO/PMX 3.375GM 50 ML IV SCH ×2 (17:40→23:22)
[2017-02-23 00:38] VITALS: BP 95/56
[2017-02-23] MEDS ORDERED: CEFTRIAXONE PMX 2GM/50ML 50 ML IV SCH (04:00)
[2017-02-23 05:03] LABS: BLOOD UREA NITROGEN 19 mg/dL (7-18)
[2017-02-23 05:06] LABS: HEMATOCRIT 24.4 % (39.2-51.8); HEMOGLOBIN 8.3 g/dL (13.7-18.0); WHITE BLOOD COUNT 7.3 x10^3/uL (3.4-10)
[2017-02-23 05:07] LABS: ASPARTATE AMINO TRANSFERASE 37 U/L (15-37)
[2017-02-23] MEDS: PIPERACILLIN/TAZO/PMX 3.375GM 50 ML IV SCH ×3 (05:45→17:22)
[2017-02-23 07:41] VITALS: BP 97/60
[2017-02-23] MEDS ORDERED: MAGNESIUM SULFATE PMX 2GM/50ML 50 ML IV ONE (08:00)
[2017-02-23] MEDS: LACTULOSE 20 GM/30 ML UDC PO SCH ×3 (08:58→21:04)
[2017-02-23] MEDS: RIFAXIMIN 550 MG TABLET PO SCH ×2 (08:58→21:05)
[2017-02-23] MEDS: FOLIC ACID 1 MG TABLET PO SCH (08:58)
[2017-02-23] MEDS: THIAMINE 100MG TABLET PO SCH (08:58)
[2017-02-23 09:50] LABS: LACTATE DEHYDROGENASE 238 U/L (87-241)
[2017-02-23 10:02] LABS: HEMATOCRIT 30.5 % (39.2-51.8); HEMOGLOBIN 10.4 g/dL (13.7-18.0); WHITE BLOOD COUNT 11.1 x10^3/uL (3.4-10)
[2017-02-23 10:12] LABS: DIFF TOTAL CELLS COUNTED 100 CELL DIFF
[2017-02-23 10:15] LABS: ANISOCYTOSIS 1+; VERIFY COUNTS? YES
[2017-02-23 10:16] LABS: LARGE PLATELETS 1+; POLYCHROMASIA 1+
[2017-02-23 13:00] VITALS: BP 117/73
[2017-02-23 18:43] VITALS: BP 109/64
[2017-02-24] MEDS: PIPERACILLIN/TAZO/PMX 3.375GM 50 ML IV SCH ×3 (00:02→12:11)
[2017-02-24 02:06] VITALS: BP 102/60
[2017-02-24 05:42] LABS: BLOOD UREA NITROGEN 26 mg/dL (7-18)
[2017-02-24 05:46] LABS: HEMATOCRIT 23.8 % (39.2-51.8); HEMOGLOBIN 8.2 g/dL (13.7-18.0)
[2017-02-24 05:51] LABS: ASPARTATE AMINO TRANSFERASE 34 U/L (15-37); FERRITIN 128.7 ng/mL (26-388); TOTAL IRON BINDING CAPACITY 152 mcg/dL (250-450)
[2017-02-24 07:00] VITALS: BP 93/59
[2017-02-24] MEDS: LACTULOSE 20 GM/30 ML UDC PO SCH ×3 (08:17→21:14)
[2017-02-24] MEDS: RIFAXIMIN 550 MG TABLET PO SCH ×2 (08:17→21:14)
[2017-02-24] MEDS: THIAMINE 100MG TABLET PO SCH (08:17)
[2017-02-24] MEDS: FOLIC ACID 1 MG TABLET PO SCH (08:17)
[2017-02-24 13:51] VITALS: BP 105/66
[2017-02-24] MEDS ORDERED: POTASSIUM CHLORIDE 20 MEQ TAB.ER.PRT PO ONE (14:00)
[2017-02-24] MEDS: CEFUROXIME 1.5 GM in SODIUM CHLORIDE 0.9% 50 ML IV SCH ×2 (15:32→23:34)
[2017-02-24] MEDS: FERROUS SULFATE 325 MG TABLET PO SCH (16:20)
[2017-02-24] MEDS ORDERED: INSULIN ASPART 100 UNITS/ML, PEN SQ-INSULIN ONE (16:30)
[2017-02-24 20:00] VITALS: BP 116/68
[2017-02-24] MEDS: ACETAMINOPHEN 325 MG TABLET PO PRN (21:14)
[2017-02-25 02:00] VITALS: BP 103/65
[2017-02-25] MEDS ORDERED: MAGNESIUM SULFATE PMX 2GM/50ML 50 ML IVPB ONE (03:30)
[2017-02-25 05:24] LABS: HEMATOCRIT 25.2 % (39.2-51.8); HEMOGLOBIN 8.6 g/dL (13.7-18.0); WHITE BLOOD COUNT 7.3 x10^3/uL (3.4-10)
[2017-02-25 05:38] LABS: BLOOD UREA NITROGEN 27 mg/dL (7-18)
[2017-02-25 07:07] VITALS: BP 93/57
[2017-02-25] MEDS: CEFUROXIME 1.5 GM in SODIUM CHLORIDE 0.9% 50 ML IV SCH (07:54)
[2017-02-25] MEDS: RIFAXIMIN 550 MG TABLET PO SCH ×2 (07:54→20:54)
[2017-02-25] MEDS: LACTULOSE 20 GM/30 ML UDC PO SCH ×3 (07:54→20:54)
[2017-02-25] MEDS: FOLIC ACID 1 MG TABLET PO SCH (07:55)
[2017-02-25] MEDS: THIAMINE 100MG TABLET PO SCH (07:55)
[2017-02-25] MEDS ORDERED: CEFTRIAXONE PMX 2GM/50ML 50 ML IV SCH (10:30)
[2017-02-25] MEDS: CEFTRIAXONE 2 GM in DEXTROSE 5% 50 ML IV SCH (11:08)
[2017-02-25 12:30] VITALS: BP 109/65
[2017-02-25] MEDS: FERROUS SULFATE 325 MG TABLET PO SCH (16:53)
[2017-02-25 19:00] VITALS: BP 121/85
[2017-02-26 01:43] VITALS: BP 107/67
[2017-02-26 05:56] LABS: HEMATOCRIT 26.2 % (39.2-51.8); WHITE BLOOD COUNT 7.3 x10^3/uL (3.4-10)
[2017-02-26 06:20] LABS: ASPARTATE AMINO TRANSFERASE 40 U/L (15-37); BLOOD UREA NITROGEN 24 mg/dL (7-18)
[2017-02-26 07:40] VITALS: BP 132/77
[2017-02-26] MEDS: CHOLECALCIFEROL 1,000 UNIT TABLET PO SCH (08:15)
[2017-02-26] MEDS: THIAMINE 100MG TABLET PO SCH (08:15)
[2017-02-26] MEDS: LACTULOSE 20 GM/30 ML UDC PO SCH ×2 (08:16→22:10)
[2017-02-26] MEDS: RIFAXIMIN 550 MG TABLET PO SCH ×2 (08:16→22:10)
[2017-02-26] MEDS: FOLIC ACID 1 MG TABLET PO SCH (08:16)
[2017-02-26] MEDS: CEFTRIAXONE 2 GM in DEXTROSE 5% 50 ML IV SCH (10:24)
[2017-02-26] MEDS ORDERED: POTASSIUM CHLORIDE 20 MEQ TAB.ER.PRT PO ONE ×2 (12:00→15:00)
[2017-02-26 12:58] VITALS: BP 127/78
[2017-02-26] MEDS ORDERED: POTASSIUM PHOSPHATE 22 MEQ in SODIUM CHLORIDE 0.9% 500 ML IV ONE ×2 (14:00→18:30)
[2017-02-26] MEDS ORDERED: POTASSIUM CHLORIDE 40 MEQ in SODIUM CHLORIDE 0.9% 500 ML IV ONE (14:00)
[2017-02-26] MEDS: FERROUS SULFATE 325 MG TABLET PO SCH (17:06)
[2017-02-26 19:29] VITALS: BP 119/77
[2017-02-27 00:44] VITALS: BP 111/68
[2017-02-27 06:25] LABS: ASPARTATE AMINO TRANSFERASE 47 U/L (15-37); BLOOD UREA NITROGEN 19 mg/dL (7-18)
[2017-02-27 07:19] VITALS: BP 110/66
[2017-02-27] MEDS: RIFAXIMIN 550 MG TABLET PO SCH ×2 (08:31→20:33)
[2017-02-27] MEDS: LACTULOSE 20 GM/30 ML UDC PO SCH (08:31)
[2017-02-27] MEDS: THIAMINE 100MG TABLET PO SCH (08:32)
[2017-02-27] MEDS: FOLIC ACID 1 MG TABLET PO SCH (08:32)
[2017-02-27] MEDS: CHOLECALCIFEROL 1,000 UNIT TABLET PO SCH (08:32)
[2017-02-27] MEDS ORDERED: POTASSIUM CHLORIDE 20 MEQ TAB.ER.PRT PO SCH (10:00)
[2017-02-27] MEDS: CEFTRIAXONE 2 GM in DEXTROSE 5% 50 ML IV SCH (11:10)
[2017-02-27] MEDS ORDERED: FLU VACC QS2017-18 (36MOS+) UP/PF 0.5 ML IM-VACC ONE (13:00)
[2017-02-27 13:40] VITALS: BP 123/82
[2017-02-27] MEDS: FUROSEMIDE 20 MG TABLET PO SCH (17:42)
[2017-02-27] MEDS: FERROUS SULFATE 325 MG TABLET PO SCH (17:42)
[2017-02-27 18:48] VITALS: BP 107/67
[2017-02-28 01:15] VITALS: BP 105/72
[2017-02-28 06:09] LABS: BLOOD UREA NITROGEN 18 mg/dL (7-18)
[2017-02-28 06:13] LABS: ASPARTATE AMINO TRANSFERASE 45 U/L (15-37)
[2017-02-28 06:18] LABS: HEMATOCRIT 25.8 % (39.2-51.8); HEMOGLOBIN 8.8 g/dL (13.7-18.0); WHITE BLOOD COUNT 4.7 x10^3/uL (3.4-10)
[2017-02-28] MEDS: SPIRONOLACTONE 25 MG TABLET PO SCH (08:26)
[2017-02-28] MEDS: RIFAXIMIN 550 MG TABLET PO SCH ×2 (08:26→21:49)
[2017-02-28] MEDS: CHOLECALCIFEROL 1,000 UNIT TABLET PO SCH (08:26)
[2017-02-28] MEDS: FOLIC ACID 1 MG TABLET PO SCH (08:26)
[2017-02-28] MEDS: THIAMINE 100MG TABLET PO SCH (08:26)
[2017-02-28] MEDS: FUROSEMIDE 20 MG TABLET PO SCH ×2 (08:26→16:57)
[2017-02-28 08:31] VITALS: BP 122/77
[2017-02-28] MEDS: CEFTRIAXONE 2 GM in DEXTROSE 5% 50 ML IV SCH (10:22)
[2017-02-28 12:35] VITALS: BP 127/78
[2017-02-28] MEDS: FERROUS SULFATE 325 MG TABLET PO SCH (16:57)
[2017-02-28 18:41] VITALS: BP 107/66
[2017-03-01 01:55] VITALS: BP 117/71
[2017-03-01] MEDS: morphine SULFATE 10 MG/ML, 1ML IVPush PRN ×2 (03:06→05:03)
[2017-03-01 05:59] LABS: BLOOD UREA NITROGEN 19 mg/dL (7-18); HEMATOCRIT 26.4 % (39.2-51.8); HEMOGLOBIN 9.4 g/dL (13.7-18.0); WHITE BLOOD COUNT 4.1 x10^3/uL (3.4-10)
[2017-03-01 06:04] LABS: ASPARTATE AMINO TRANSFERASE 45 U/L (15-37)
[2017-03-01 06:26] LABS: DIFF TOTAL CELLS COUNTED 100 CELL DIFF
[2017-03-01 06:31] LABS: ANISOCYTOSIS 1+; VERIFY COUNTS? YES
[2017-03-01 06:32] LABS: POLYCHROMASIA 1+
[2017-03-01 06:42] LABS: OVALOCYTES 1+
[2017-03-01 07:22] VITALS: BP 122/74
[2017-03-01] MEDS: FUROSEMIDE 20 MG TABLET PO SCH ×2 (09:13→16:51)
[2017-03-01] MEDS: FOLIC ACID 1 MG TABLET PO SCH (09:13)
[2017-03-01] MEDS: THIAMINE 100MG TABLET PO SCH (09:14)
[2017-03-01] MEDS: SPIRONOLACTONE 25 MG TABLET PO SCH (09:14)
[2017-03-01] MEDS: CHOLECALCIFEROL 1,000 UNIT TABLET PO SCH (09:14)
[2017-03-01] MEDS: ONDANSETRON 2MG/ML, 2ML IVPush PRN (09:14)
[2017-03-01] MEDS: RIFAXIMIN 550 MG TABLET PO SCH ×2 (09:15→20:23)
[2017-03-01] MEDS: CEFTRIAXONE 2 GM in DEXTROSE 5% 50 ML IV SCH (10:12)
[2017-03-01 15:18] VITALS: BP 102/62
[2017-03-01] MEDS: FERROUS SULFATE 325 MG TABLET PO SCH (16:51)
[2017-03-01 20:00] VITALS: BP 125/78
[2017-03-02 00:58] VITALS: BP 118/72
[2017-03-02] MEDS: morphine SULFATE 10 MG/ML, 1ML IVPush PRN (02:10)
[2017-03-02 05:35] LABS: HEMATOCRIT 25.4 % (39.2-51.8); HEMOGLOBIN 8.8 g/dL (13.7-18.0); WHITE BLOOD COUNT 6.7 x10^3/uL (3.4-10)
[2017-03-02 05:49] LABS: BLOOD UREA NITROGEN 20 mg/dL (7-18)
[2017-03-02 05:55] LABS: DIFF TOTAL CELLS COUNTED 100 CELL DIFF
[2017-03-02 05:57] LABS: ANISOCYTOSIS 1+; POLYCHROMASIA 1+; VERIFY COUNTS? YES
[2017-03-02 07:22] VITALS: BP 120/78
[2017-03-02] MEDS: LACTULOSE 20 GM/30 ML UDC PO SCH (07:26)
[2017-03-02] MEDS: FUROSEMIDE 20 MG TABLET PO SCH (07:26)
[2017-03-02] MEDS: CHOLECALCIFEROL 1,000 UNIT TABLET PO SCH (07:27)
[2017-03-02] MEDS: SPIRONOLACTONE 25 MG TABLET PO SCH (07:27)
[2017-03-02] MEDS: RIFAXIMIN 550 MG TABLET PO SCH ×2 (07:27→20:14)
[2017-03-02] MEDS: FOLIC ACID 1 MG TABLET PO SCH (07:27)
[2017-03-02] MEDS: THIAMINE 100MG TABLET PO SCH (07:27)
[2017-03-02] MEDS: CEFTRIAXONE 2 GM in DEXTROSE 5% 50 ML IV SCH (10:16)
[2017-03-02 14:48] VITALS: BP 126/79
[2017-03-02] MEDS: FERROUS SULFATE 325 MG TABLET PO SCH (16:45)
[2017-03-02 19:04] VITALS: BP 119/72
[2017-03-02] MEDS ORDERED: ACETAMINOPHEN 325 MG TABLET PO PRN (23:30)
[2017-03-03 01:08] VITALS: BP 109/66
[2017-03-03 05:18] LABS: HEMATOCRIT 25.4 % (39.2-51.8); HEMOGLOBIN 8.7 g/dL (13.7-18.0); WHITE BLOOD COUNT 9.2 x10^3/uL (3.4-10)
[2017-03-03 05:29] LABS: BLOOD UREA NITROGEN 24 mg/dL (7-18)
[2017-03-03 07:41] VITALS: BP 108/67
[2017-03-03] MEDS: FOLIC ACID 1 MG TABLET PO SCH (08:52)
[2017-03-03] MEDS: RIFAXIMIN 550 MG TABLET PO SCH ×2 (08:52→21:11)
[2017-03-03] MEDS: THIAMINE 100MG TABLET PO SCH (08:52)
[2017-03-03] MEDS: LACTULOSE 20 GM/30 ML UDC PO SCH (08:53)
[2017-03-03] MEDS: CHOLECALCIFEROL 1,000 UNIT TABLET PO SCH (08:53)
[2017-03-03] MEDS: CEFTRIAXONE 2 GM in DEXTROSE 5% 50 ML IV SCH (10:16)
[2017-03-03] MEDS ORDERED: PHARMACOKINETIC MONITORING MC PRN (10:30)
[2017-03-03] MEDS ORDERED: VANCOMYCIN PER PHARMACY MC PRN (10:30)
[2017-03-03] MEDS ORDERED: VANCOMYCIN 1,500 MG in SODIUM CHLORIDE 0.9% 250 ML IV SCH (11:00)
[2017-03-03 13:21] VITALS: BP 99/61
[2017-03-03] MEDS: FERROUS SULFATE 325 MG TABLET PO SCH (17:04)
[2017-03-03 19:33] VITALS: BP 103/69
[2017-03-03] MEDS: ALBUMIN HUMAN 5% 250 ML IV SCH (21:12)
[2017-03-04 03:26] VITALS: BP 106/68
[2017-03-04 05:19] LABS: WHITE BLOOD COUNT 9.6 x10^3/uL (3.4-10)
[2017-03-04 05:38] LABS: BLOOD UREA NITROGEN 27 mg/dL (7-18)
[2017-03-04] MEDS: THIAMINE 100MG TABLET PO SCH (08:00)
[2017-03-04] MEDS: LACTULOSE 20 GM/30 ML UDC PO SCH (08:00)
[2017-03-04] MEDS: CHOLECALCIFEROL 1,000 UNIT TABLET PO SCH (08:00)
[2017-03-04] MEDS: RIFAXIMIN 550 MG TABLET PO SCH ×2 (08:00→20:00)
[2017-03-04] MEDS: FOLIC ACID 1 MG TABLET PO SCH (08:00)
[2017-03-04 08:25] VITALS: BP 112/74
[2017-03-04] MEDS: CEFTRIAXONE 2 GM in DEXTROSE 5% 50 ML IV SCH (10:56)
[2017-03-04 13:22] VITALS: BP 106/67
[2017-03-04] MEDS: FERROUS SULFATE 325 MG TABLET PO SCH (16:36)
[2017-03-04] MEDS ORDERED: VANCOMYCIN 1,500 MG in SODIUM CHLORIDE 0.9% 250 ML IV ONE (17:00)
[2017-03-04] MEDS: ALBUMIN HUMAN 5% 250 ML IV SCH (19:00)
[2017-03-04 20:00] VITALS: BP 111/68
[2017-03-05] VITALS (13 sets, daily range): BP systolic 90–106; BP diastolic 54–68
[2017-03-05 05:32] LABS: HEMOGLOBIN 7.5 g/dL (13.7-18.0); WHITE BLOOD COUNT 6.1 x10^3/uL (3.4-10)
[2017-03-05 05:40] LABS: HEMATOCRIT 21.6 % (39.2-51.8)
[2017-03-05 05:43] LABS: BLOOD UREA NITROGEN 27 mg/dL (7-18)
[2017-03-05] MEDS: ALBUMIN HUMAN 5% 250 ML IV SCH ×2 (08:00→20:47)
[2017-03-05] MEDS: LACTULOSE 20 GM/30 ML UDC PO SCH (08:17)
[2017-03-05] MEDS: FOLIC ACID 1 MG TABLET PO SCH (08:18)
[2017-03-05] MEDS: THIAMINE 100MG TABLET PO SCH (08:18)
[2017-03-05] MEDS: RIFAXIMIN 550 MG TABLET PO SCH ×2 (08:18→20:47)
[2017-03-05] MEDS: CHOLECALCIFEROL 1,000 UNIT TABLET PO SCH (08:19)
[2017-03-05] MEDS ORDERED: SODIUM CHLORIDE 0.9% 500 ML IV SCH (10:09)
[2017-03-05] MEDS ORDERED: DIPHENHYDRAMINE 50 MG/ML, 1ML IVPush ONE (10:30)
[2017-03-05] MEDS ORDERED: ACETAMINOPHEN 325 MG TABLET PO ONE (10:30)
[2017-03-05 13:47] LABS: OCCBLD OBC PASS
[2017-03-05] MEDS: FERROUS SULFATE 325 MG TABLET PO SCH (16:53)
[2017-03-05] MEDS: CEFTRIAXONE 2 GM in DEXTROSE 5% 50 ML IV SCH (16:53)
[2017-03-06 01:31] VITALS: BP 108/70
[2017-03-06 06:53] VITALS: BP 118/79
[2017-03-06 07:14] LABS: HEMATOCRIT 27.5 % (39.2-51.8); HEMOGLOBIN 9.6 g/dL (13.7-18.0); WHITE BLOOD COUNT 5.6 x10^3/uL (3.4-10)
[2017-03-06 07:20] LABS: BLOOD UREA NITROGEN 25 mg/dL (7-18)
[2017-03-06 07:36] LABS: ANISOCYTOSIS 1+; POLYCHROMASIA 1+
[2017-03-06] MEDS: FOLIC ACID 1 MG TABLET PO SCH (08:01)
[2017-03-06] MEDS: LACTULOSE 20 GM/30 ML UDC PO SCH (08:02)
[2017-03-06] MEDS: THIAMINE 100MG TABLET PO SCH (08:02)
[2017-03-06] MEDS: RIFAXIMIN 550 MG TABLET PO SCH ×2 (08:03→20:30)
[2017-03-06] MEDS: CHOLECALCIFEROL 1,000 UNIT TABLET PO SCH (08:03)
[2017-03-06] MEDS: ALBUMIN HUMAN 5% 250 ML IV SCH ×2 (08:08→20:31)
[2017-03-06] MEDS ORDERED: VANCOMYCIN 1,500 MG in SODIUM CHLORIDE 0.9% 250 ML IV ONE (09:00)
[2017-03-06 13:51] VITALS: BP 106/66
[2017-03-06] MEDS: FERROUS SULFATE 325 MG TABLET PO SCH (17:16)
[2017-03-06] MEDS: CEFTRIAXONE 2 GM in DEXTROSE 5% 50 ML IV SCH (17:16)
[2017-03-06 20:29] VITALS: BP 123/73
[2017-03-07 00:55] VITALS: BP 106/66
[2017-03-07 06:06] LABS: BLOOD UREA NITROGEN 24 mg/dL (7-18)
[2017-03-07 06:10] LABS: HEMATOCRIT 26.3 % (39.2-51.8); WHITE BLOOD COUNT 4.8 x10^3/uL (3.4-10)
[2017-03-07 06:48] VITALS: BP 110/72
[2017-03-07] MEDS: ALBUMIN HUMAN 5% 250 ML IV SCH (09:12)
[2017-03-07] MEDS: LACTULOSE 20 GM/30 ML UDC PO SCH (09:13)
[2017-03-07] MEDS: THIAMINE 100MG TABLET PO SCH (09:13)
[2017-03-07] MEDS: FOLIC ACID 1 MG TABLET PO SCH (09:13)
[2017-03-07] MEDS: CHOLECALCIFEROL 1,000 UNIT TABLET PO SCH (09:13)
[2017-03-07] MEDS: RIFAXIMIN 550 MG TABLET PO SCH (10:12)
[2017-03-07] MEDS ORDERED: VANCOMYCIN 1,500 MG in SODIUM CHLORIDE 0.9% 250 ML IV SCH (22:00)
== END 2017-03-07 12:36 | DRG 871 ==
LOC: ED 04:12 → SUATTDRO 05:04 → EDIP 05:05 → 4WST 05:35
PROVIDERS: ADMIT Hospitalist; ATTEND Hospitalist
PROC: 0W9G3ZZ Drainage of Peritoneal Cavity, Percutaneous Approach (ICD-10-PCS; principal; 2017-02-22)
DX: A41.9 Sepsis, unspecified organism (principal); E43 Unspecified severe protein-calorie malnutrition; N17.0 Acute kidney failure with tubular necrosis; G93.40 Encephalopathy, unspecified; D61.818 Other pancytopenia; E87.2 Acidosis; K65.2 Spontaneous bacterial peritonitis; K76.6 Portal hypertension; D68.69 Other thrombophilia; N39.0 Urinary tract infection, site not specified; D69.59 Other secondary thrombocytopenia; E83.39 Other disorders of phosphorus metabolism; E87.8 Other disorders of electrolyte and fluid balance, not elsewhere classified; B96.20 Unspecified Escherichia coli [E. coli] as the cause of diseases classified elsewhere; D50.9 Iron deficiency anemia, unspecified; D53.9 Nutritional anemia, unspecified; E55.9 Vitamin D deficiency, unspecified; E87.6 Hypokalemia; R65.20 Severe sepsis without septic shock; K72.90 Hepatic failure, unspecified without coma; K70.31 Alcoholic cirrhosis of liver with ascites; I10 Essential (primary) hypertension; F10.10 Alcohol abuse, uncomplicated; Z68.28 Body mass index [BMI] 28.0-28.9, adult; Z91.14 Patient's other noncompliance with medication regimen; R16.1 Splenomegaly, not elsewhere classified
CPT/HCPCS: 36415; 71010; 76770; 80048; 80053; 80202; 80307; 81001; 82042; 82140; 82272; 82306; 82550; 82607; 82728; 82746; 83540; 83550; 83605; 83615; 83735; 83970; 84100; 84145; 84550; 85025; 85610; 85730; 86850; 86900; 86923; 87040; 87070; 87077; 87086; 87186; 87205; 89051; 90686; 93005; 93970; 96365; 96367; J0696; J0697; J2405; J2543; J3370; J3480; P9041; G0479; J1200; J2270; J3475; J7030; J7040; J7050; P9016; P9045

== ENCOUNTER 2017-07-16 19:13 | Inpatient (IN) | payer OTHER, MEDICAID ==
[~2017-07-16] VITALS: Ht 165.1 cm; Wt 69.2 kg
[2017-07-16] MEDS ORDERED: LORA-446 PO (19:50)
[2017-07-16] MEDS ORDERED: [UNRECOGNIZED DRUG - CODE] PO (19:50)
[2017-07-16 20:17] LABS: BASOPHILS # (AUTO) 0.02 x10^3/uL (0-0.1); BASOPHILS % (AUTO) 0 % (0-1); EOSINOPHILS # (AUTO) 0.03 x10^3/uL (0-0.4); EOSINOPHILS % (AUTO) 0 % (1-7); LYMPHOCYTES # (AUTO) 1.17 x10^3/uL (1-3.4); LYMPHOCYTES % (AUTO) 9 % (22-44); MD NO; MEAN CORPUSCULAR HEMOGLOBIN 34.8 pg (27.5-34.5); MEAN CORPUSCULAR HGB CONC 34.2 g/dL (33.2-36.2); MEAN PLATELET VOLUME 8.1 fL (7.4-10.4); MONOCYTES # (AUTO) 0.43 x10^3/uL (0.2-0.8); MONOCYTES % (AUTO) 3 % (2-9); NEUTROPHILS # (AUTO) 10.85 x10^3/uL (1.8-6.8); NEUTROPHILS % (AUTO) 87 % (42-75); PLATELET COUNT 128 x10^3/uL (130-400); RED BLOOD COUNT 3.04 x10^6/uL (4.38-5.82); RED CELL DISTRIBUTION WIDTH 16.2 % (9.4-14.8)
[2017-07-16 20:28] LABS: ALANINE AMINOTRANSFERASE 12 U/L (12-78); ALBUMIN 1.5 g/dL (3.4-5.0); ANION GAP 9 mmol/L (5-15); CHLORIDE 114 mmol/L (98-107); CREATININE 1.69 mg/dL (0.7-1.3)
[2017-07-16 20:31] LABS: ALKALINE PHOSPHATASE 97 U/L (45-117); TOTAL PROTEIN 7.9 g/dL (6.4-8.2); TROPONIN I < 0.015 ng/mL (0.000-0.045)
[2017-07-16 20:33] LABS: ACETAMINOPHEN < 2 mcg/mL (10-30); SALICYLATE LEVEL < 1.7 mg/dL (2.8-20.0)
[2017-07-16 20:40] LABS: AMPHETAMINE SCREEN, URINE Negative (Negative); BARBITURATE SCREEN, URINE Negative (Negative); BENZODIAZEPINE SCREEN, URINE Negative (Negative); CANNABINOID SCREEN, URINE Negative (Negative); COCAINE SCREEN, URINE Negative (Negative); METHADONE SCREEN, URINE Negative (Negative); OPIATE SCREEN, URINE Positive (Negative)
[2017-07-16] MEDS ORDERED: LACTULOSE 20 GM/30 ML UDC PO ONE (21:30)
[2017-07-16] MEDS ORDERED: LACTULOSE 3.3 GM/5 ML ORAL.SOL RC ONE (22:30)
[2017-07-16 22:46] LABS: CULTURE INDICATED? YES; MICROSCOPIC INDICATED
[2017-07-16] MEDS: SODIUM CHLORIDE 0.9% 1,000 ML IV SCH (23:13)
[2017-07-16] MEDS ORDERED: ONDANSETRON 2MG/ML, 2ML IVPush PRN (23:30)
[2017-07-17] VITALS: BP 159/86
[2017-07-17] MEDS: CEFTRIAXONE PMX 1GM/50ML 50 ML IV SCH ×2 (00:54→23:24)
[2017-07-17] MEDS: POTASSIUM CHLORIDE 20 MEQ, MAGNESIUM SULFATE 2 GM, THIAMINE 100 MG, MVI ADULT 10 ML, FO... IV SCH (01:56)
[2017-07-17 02:57] VITALS: BP 149/84
[2017-07-17 05:51] LABS: BASOPHILS # (AUTO) 0.04 x10^3/uL (0-0.1); BASOPHILS % (AUTO) 1 % (0-1); EOSINOPHILS # (AUTO) 0.14 x10^3/uL (0-0.4); EOSINOPHILS % (AUTO) 2 % (1-7); LYMPHOCYTES # (AUTO) 1.35 x10^3/uL (1-3.4); LYMPHOCYTES % (AUTO) 15 % (22-44); MD NO; MEAN CORPUSCULAR HEMOGLOBIN 35.4 pg (27.5-34.5); MEAN CORPUSCULAR HGB CONC 34.3 g/dL (33.2-36.2); MEAN CORPUSCULAR VOLUME 103.2 fL (81-97); MEAN PLATELET VOLUME 7.9 fL (7.4-10.4); MONOCYTES # (AUTO) 0.39 x10^3/uL (0.2-0.8); MONOCYTES % (AUTO) 4 % (2-9); NEUTROPHILS # (AUTO) 6.87 x10^3/uL (1.8-6.8); NEUTROPHILS % (AUTO) 78 % (42-75); PLATELET COUNT 120 x10^3/uL (130-400); RED BLOOD COUNT 2.86 x10^6/uL (4.38-5.82); RED CELL DISTRIBUTION WIDTH 16.4 % (9.4-14.8)
[2017-07-17 06:01] LABS: ALBUMIN 1.3 g/dL (3.4-5.0); ANION GAP 8 mmol/L (5-15); CALCIUM 7.8 mg/dL (8.5-10.1); CHLORIDE 118 mmol/L (98-107)
[2017-07-17 06:06] LABS: ALANINE AMINOTRANSFERASE 12 U/L (12-78); ALKALINE PHOSPHATASE 87 U/L (45-117); CREATININE 1.56 mg/dL (0.7-1.3); TOTAL PROTEIN 6.8 g/dL (6.4-8.2)
[2017-07-17 06:07] VITALS: BP 159/86
[2017-07-17 07:00] VITALS: BP 146/83
[2017-07-17] MEDS ORDERED: POTASSIUM CHLORIDE 20 MEQ TAB.ER.PRT PO SCH (09:00)
[2017-07-17] MEDS ORDERED: RIFAXIMIN 550 MG TABLET PO SCH (09:00)
[2017-07-17] MEDS: RIFAXIMIN 550 MG TABLET PO/NG SCH ×2 (11:35→19:55)
[2017-07-17] MEDS: LACTULOSE 20 GM/30 ML UDC PO SCH ×3 (11:35→21:00)
[2017-07-17] MEDS: POTASSIUM CHLORIDE 20 MEQ TAB.ER.PRT PO SCH ×2 (11:36→19:55)
[2017-07-17] MEDS: SODIUM CHLORIDE 0.9% 1,000 ML IV SCH (11:36)
[2017-07-17 13:10] VITALS: BP 118/63
[2017-07-17] MEDS: LORazepam 2 MG/ML, 1ML IVPush PRN ×2 (13:36→18:33)
[2017-07-17 20:08] VITALS: BP 161/83
[2017-07-18] MEDS: SODIUM CHLORIDE 0.9% 1,000 ML IV SCH
[2017-07-18 00:35] VITALS: BP 125/75
[2017-07-18] MEDS: LORazepam 2 MG/ML, 1ML IVPush PRN (01:40)
[2017-07-18] MEDS: POTASSIUM CHLORIDE 20 MEQ, MAGNESIUM SULFATE 2 GM, THIAMINE 100 MG, MVI ADULT 10 ML, FO... IV SCH (02:06)
[2017-07-18 05:41] LABS: BASOPHILS # (AUTO) 0.03 x10^3/uL (0-0.1); BASOPHILS % (AUTO) 1 % (0-1); EOSINOPHILS # (AUTO) 0.16 x10^3/uL (0-0.4); EOSINOPHILS % (AUTO) 3 % (1-7); LYMPHOCYTES # (AUTO) 0.99 x10^3/uL (1-3.4); LYMPHOCYTES % (AUTO) 18 % (22-44); MD NO; MEAN CORPUSCULAR HEMOGLOBIN 35.2 pg (27.5-34.5); MEAN CORPUSCULAR HGB CONC 33.9 g/dL (33.2-36.2); MEAN CORPUSCULAR VOLUME 103.6 fL (81-97); MEAN PLATELET VOLUME 8.1 fL (7.4-10.4); MONOCYTES # (AUTO) 0.41 x10^3/uL (0.2-0.8); MONOCYTES % (AUTO) 8 % (2-9); NEUTROPHILS # (AUTO) 3.88 x10^3/uL (1.8-6.8); NEUTROPHILS % (AUTO) 71 % (42-75); PLATELET COUNT 107 x10^3/uL (130-400); RED CELL DISTRIBUTION WIDTH 16.5 % (9.4-14.8)
[2017-07-18 05:43] LABS: ALBUMIN 1.4 g/dL (3.4-5.0); ANION GAP 7 mmol/L (5-15); CALCIUM 7.7 mg/dL (8.5-10.1); CHLORIDE 124 mmol/L (98-107)
[2017-07-18 05:47] LABS: CREATININE 1.41 mg/dL (0.7-1.3)
[2017-07-18 05:48] LABS: ALANINE AMINOTRANSFERASE 14 U/L (12-78); ALKALINE PHOSPHATASE 89 U/L (45-117); BILIRUBIN,TOTAL 2.4 mg/dL (0.2-1.0)
[2017-07-18 08:09] VITALS: BP 146/63
[2017-07-18] MEDS: MULTIVITAMIN 1 TABLET NG SCH (10:16)
[2017-07-18] MEDS: THIAMINE 100MG TABLET NG SCH (10:16)
[2017-07-18] MEDS: LACTULOSE 20 GM/30 ML UDC PO SCH ×3 (10:16→21:48)
[2017-07-18] MEDS: FOLIC ACID 1 MG TABLET NG SCH (10:16)
[2017-07-18] MEDS: RIFAXIMIN 550 MG TABLET PO/NG SCH ×2 (10:17→21:48)
[2017-07-18] MEDS: DEXTROSE 5% 1,000 ML IV SCH ×2 (10:19→21:49)
[2017-07-18 13:44] VITALS: BP 148/82
[2017-07-18] MEDS ORDERED: ONDANSETRON 2MG/ML, 2ML IVPush PRN (16:35)
[2017-07-18] MEDS ORDERED: ONDANSETRON ODT 4 MG PO PRN (17:00)
[2017-07-18 20:32] VITALS: BP 154/82
[2017-07-18] MEDS ORDERED: LORazepam 2 MG/ML, 1ML ONE (22:40)
[2017-07-18] MEDS ORDERED: LORazepam 2 MG/ML, 1ML IVPush ONE (23:00)
[2017-07-18] MEDS: CEFTRIAXONE PMX 1GM/50ML 50 ML IV SCH (23:42)
[2017-07-19 01:25] VITALS: BP 144/84
[2017-07-19 04:13] LABS: ALBUMIN 1.4 g/dL (3.4-5.0); ANION GAP 8 mmol/L (5-15); CALCIUM 7.9 mg/dL (8.5-10.1); CHLORIDE 119 mmol/L (98-107)
[2017-07-19] MEDS: FOLIC ACID 1 MG TABLET NG SCH ×2 (07:22→09:08)
[2017-07-19] MEDS: THIAMINE 100MG TABLET NG SCH ×2 (07:22→09:08)
[2017-07-19] MEDS: LACTULOSE 20 GM/30 ML UDC PO SCH ×4 (07:22→21:00)
[2017-07-19] MEDS: MULTIVITAMIN 1 TABLET NG SCH ×2 (07:22→09:08)
[2017-07-19] MEDS: RIFAXIMIN 550 MG TABLET PO/NG SCH ×3 (07:23→21:00)
[2017-07-19 07:29] VITALS: BP 149/90
[2017-07-19] MEDS: DEXTROSE 5% 1,000 ML IV SCH ×2 (12:10→15:52)
[2017-07-19 13:13] VITALS: BP 125/75
[2017-07-19 19:35] VITALS: BP 122/77
[2017-07-20 00:20] VITALS: BP 119/75
[2017-07-20] MEDS: DEXTROSE 5% 1,000 ML IV SCH (03:57)
[2017-07-20 05:23] LABS: MEAN CORPUSCULAR HEMOGLOBIN 35.1 pg (27.5-34.5); MEAN CORPUSCULAR HGB CONC 34.3 g/dL (33.2-36.2); MEAN CORPUSCULAR VOLUME 102.3 fL (81-97); RED BLOOD COUNT 2.62 x10^6/uL (4.38-5.82); RED CELL DISTRIBUTION WIDTH 16.1 % (9.4-14.8)
[2017-07-20 05:32] LABS: CALCIUM 7.4 mg/dL (8.5-10.1); CHLORIDE 112 mmol/L (98-107)
[2017-07-20 05:38] LABS: ALANINE AMINOTRANSFERASE 11 U/L (12-78); ALBUMIN 1.2 g/dL (3.4-5.0); ALKALINE PHOSPHATASE 83 U/L (45-117); ANION GAP 9 mmol/L (5-15); BILIRUBIN,TOTAL 2.1 mg/dL (0.2-1.0); CREATININE 1.43 mg/dL (0.7-1.3); TOTAL PROTEIN 6.4 g/dL (6.4-8.2)
[2017-07-20 05:53] LABS: MEAN PLATELET VOLUME 8.3 fL (7.4-10.4); PLATELET COUNT 90 x10^3/uL (130-400)
[2017-07-20 06:02] LABS: BASOPHILS # (AUTO) 0.03 x10^3/uL (0-0.1); BASOPHILS % (AUTO) 1 % (0-1); EOSINOPHILS # (AUTO) 0.28 x10^3/uL (0-0.4); EOSINOPHILS % (AUTO) 5 % (1-7); LYMPHOCYTES # (AUTO) 1.61 x10^3/uL (1-3.4); LYMPHOCYTES % (AUTO) 29 % (22-44); MD SCAN; MONOCYTES # (AUTO) 0.53 x10^3/uL (0.2-0.8); MONOCYTES % (AUTO) 10 % (2-9); NEUTROPHILS % (AUTO) 56 % (42-75)
[2017-07-20 07:57] VITALS: BP 124/68
[2017-07-20] MEDS: LACTULOSE 20 GM/30 ML UDC PO SCH ×3 (09:00→21:29)
[2017-07-20] MEDS: MULTIVITAMIN 1 TABLET NG SCH (09:00)
[2017-07-20] MEDS: FOLIC ACID 1 MG TABLET NG SCH (09:00)
[2017-07-20] MEDS: RIFAXIMIN 550 MG TABLET PO/NG SCH ×2 (09:00→21:29)
[2017-07-20] MEDS: THIAMINE 100MG TABLET NG SCH (09:00)
[2017-07-20] MEDS: POTASSIUM CHLORIDE 20 MEQ PACKET PO SCH ×2 (09:30→12:08)
[2017-07-20 13:51] VITALS: BP 105/67
[2017-07-20 21:12] VITALS: BP 119/77
[2017-07-21] MEDS: DEXTROSE 5% 1,000 ML IV SCH ×2 (00:05→12:33)
[2017-07-21 03:01] VITALS: BP 116/71
[2017-07-21 06:08] LABS: ANION GAP 8 mmol/L (5-15); CALCIUM 7.2 mg/dL (8.5-10.1); CHLORIDE 111 mmol/L (98-107); CREATININE 1.43 mg/dL (0.7-1.3)
[2017-07-21 08:14] VITALS: BP 119/72
[2017-07-21] MEDS: LACTULOSE 20 GM/30 ML UDC PO SCH ×3 (09:35→20:44)
[2017-07-21] MEDS: FOLIC ACID 1 MG TABLET NG SCH (09:35)
[2017-07-21] MEDS: RIFAXIMIN 550 MG TABLET PO/NG SCH ×2 (09:36→20:44)
[2017-07-21] MEDS: MULTIVITAMIN 1 TABLET NG SCH (09:36)
[2017-07-21] MEDS: THIAMINE 100MG TABLET NG SCH (09:36)
[2017-07-21 14:05] VITALS: BP 119/77
[2017-07-21 19:30] VITALS: BP 125/82
[2017-07-22] VITALS (11 sets, daily range): BP systolic 107–133; BP diastolic 61–82
[2017-07-22] MEDS: DEXTROSE 5% 1,000 ML IV SCH (00:49)
[2017-07-22] MEDS: LACTULOSE 20 GM/30 ML UDC PO SCH ×3 (08:02→20:15)
[2017-07-22] MEDS: RIFAXIMIN 550 MG TABLET PO/NG SCH ×2 (08:03→20:15)
[2017-07-22] MEDS: THIAMINE 100MG TABLET NG SCH (08:03)
[2017-07-22] MEDS: MULTIVITAMIN 1 TABLET NG SCH (08:03)
[2017-07-22] MEDS: FOLIC ACID 1 MG TABLET NG SCH (08:03)
[2017-07-22] MEDS ORDERED: GOLYTELY 4,000ML ORAL.SOL PO ONE (20:00)
[2017-07-23 00:21] VITALS: BP 146/97
[2017-07-23 07:09] VITALS: BP 115/70
[2017-07-23] MEDS: RIFAXIMIN 550 MG TABLET PO/NG SCH ×2 (09:00→21:27)
[2017-07-23] MEDS: FOLIC ACID 1 MG TABLET NG SCH (09:00)
[2017-07-23] MEDS: THIAMINE 100MG TABLET NG SCH (09:00)
[2017-07-23] MEDS: MULTIVITAMIN 1 TABLET NG SCH (09:00)
[2017-07-23] MEDS: LACTULOSE 20 GM/30 ML UDC PO SCH ×3 (09:00→21:27)
[2017-07-23 11:30] LABS: INTERNATIONAL NORMALIZED RATIO 1.52 (0.93-1.1); PROTHROMBIN TIME 15.5 Seconds (9.6-11.5)
[2017-07-23 13:22] VITALS: BP 100/64
[2017-07-23] MEDS ORDERED: PROPOFOL 10 MG/ML, 20ML ONE (14:30)
[2017-07-23 19:31] VITALS: BP 131/79
[2017-07-24 02:11] VITALS: BP 104/61
[2017-07-24 08:00] VITALS: BP 101/65
[2017-07-24] MEDS: RIFAXIMIN 550 MG TABLET PO/NG SCH (09:38)
[2017-07-24] MEDS: THIAMINE 100MG TABLET NG SCH (09:38)
[2017-07-24] MEDS: MULTIVITAMIN 1 TABLET NG SCH (09:38)
[2017-07-24] MEDS: LACTULOSE 20 GM/30 ML UDC PO SCH (09:38)
[2017-07-24] MEDS: FOLIC ACID 1 MG TABLET NG SCH (09:39)
[2017-07-24] MEDS ORDERED: THIA100T6 NG (10:55)
[2017-07-24] MEDS ORDERED: RIFA550T4 PO/NG (10:55)
[2017-07-24 14:00] VITALS: BP 118/71
== END 2017-07-24 15:18 | disposition hospice, home (50) | DRG 374 ==
LOC: ED 22:37 → EDIP 23:07 → 4EST 23:35
PROVIDERS: ADMIT Hospitalist; ATTEND Hospitalist
PROC: 0T9B70Z Drainage of Bladder with Drainage Device, Via Natural or Artificial Opening (ICD-10-PCS; 2017-07-16)
PROC: 30233N1 Transfusion of Nonautologous Red Blood Cells into Peripheral Vein, Percutaneous Approach (ICD-10-PCS; 2017-07-22)
PROC: 0DBN8ZX Excision of Sigmoid Colon, Via Natural or Artificial Opening Endoscopic, Diagnostic (ICD-10-PCS; principal; 2017-07-23 14:30)
DX: C18.7 Malignant neoplasm of sigmoid colon (principal); E43 Unspecified severe protein-calorie malnutrition; N17.0 Acute kidney failure with tubular necrosis; G92 Toxic encephalopathy; K56.609 Unspecified intestinal obstruction, unspecified as to partial versus complete obstruction; D68.9 Coagulation defect, unspecified; D69.6 Thrombocytopenia, unspecified; K70.41 Alcoholic hepatic failure with coma; K76.6 Portal hypertension; E87.0 Hyperosmolality and hypernatremia; D62 Acute posthemorrhagic anemia; N39.0 Urinary tract infection, site not specified; B95.1 Streptococcus, group B, as the cause of diseases classified elsewhere; E86.0 Dehydration; Z68.25 Body mass index [BMI] 25.0-25.9, adult; E87.6 Hypokalemia; F10.20 Alcohol dependence, uncomplicated; I10 Essential (primary) hypertension; K64.8 Other hemorrhoids; K70.31 Alcoholic cirrhosis of liver with ascites; Z66 Do not resuscitate; D63.8 Anemia in other chronic diseases classified elsewhere; D53.9 Nutritional anemia, unspecified; F17.200 Nicotine dependence, unspecified, uncomplicated
CPT/HCPCS: 36415; 70450; 71045; 74018; 74176; 80048; 80053; 80307; 80329; 81001; 82040; 82140; 83735; 84100; 84484; 85014; 85018; 85025; 85610; 85730; 86850; 86900; 86923; 87086; 87147; 88305; 93005; 99291; J0696; J2704; J3411; J3475; J3480; J7042; J7070; G0480; J2060; J7030; P9016